=== PATIENT | female | born 1955 | race Caucasian/White ===

== ENCOUNTER 2017-10-18 08:49 | Observation (INO) | payer MEDICARE, MEDICAID ==
[~2017-10-18] VITALS: Ht 172.7 cm; Wt 90.1 kg
[~2017-10-18 08:49] MED LIST: FOLI400T PO; LISI-515 PO
[2017-10-18] MEDS ORDERED: CHLORHEXIDINE GLUCONATE 2 % 1 PACK (2 CLOTHS) TOPICAL PRN (09:45)
[2017-10-18] MEDS ORDERED: INSULIN HUMAN REGULAR 1,000 UNITS/10 ML VIAL SQ PRN (09:45)
[2017-10-18] MEDS ORDERED: LACTATED RINGER'S 1000 ML IV PRN (09:45)
[2017-10-18] MEDS ORDERED: ceFAZolin 2 GM PREMIX 50 ML IV SCH (09:45)
[2017-10-18] MEDS ORDERED: SODIUM CHLORID 0.9% 500 ML IV PRN (09:45)
[2017-10-18] MEDS ORDERED: POVIDONE IODINE 5% (ANTISEPSIS KIT) 4 APPLICATIONS EACH NARE PRN (09:45)
[2017-10-18] MEDS ORDERED: METOPROLOL TARTRATE 25 MG TAB PO PRN (09:45)
[2017-10-18 10:27] LABS: AUTOMATED NEUTROPHIL # 3.4 TH/MM3 (1.8-7.7); BASOPHIL % 0.2 % (0.0-2.0); EOSINOPHIL # 0.1 TH/MM3 (0-0.4); EOSINOPHIL % 1.8 % (0.0-4.0); HEMATOCRIT 39.9 % (35.0-46.0); HEMOGLOBIN 13.8 GM/DL (11.6-15.3); LYMPH % 33.9 % (9.0-44.0); LYMPHOCYTE # 1.9 TH/MM3 (1.0-4.8); MEAN CELL VOLUME 84.5 FL (80.0-100.0); MEAN CORPUSCULAR HEMOGLOBIN 29.2 PG (27.0-34.0); MEAN CORPUSCULAR HGB CONC 34.5 % (32.0-36.0); MEAN PLATELET VOLUME 8.2 FL (7.0-11.0); MONO % 5.5 % (0.0-8.0); MONOCYTE # 0.3 TH/MM3 (0-0.9); NEUT % 58.6 % (16.0-70.0); PLATELET COUNT 152 TH/MM3 (150-450); RED BLOOD COUNT 4.72 MIL/MM3 (4.00-5.30); RED CELL DISTRIBUTION WIDTH 14.5 % (11.6-17.2); WHITE BLOOD COUNT 5.7 TH/MM3 (4.0-11.0)
[2017-10-18] MEDS ORDERED: ROCURONIUM INJ 50 MG/5 ML SYRINGE IV PUSH ONE (12:00)
[2017-10-18] MEDS ORDERED: PROPOFOL 200 MG/20 ML AMP IV ONE (12:00)
[2017-10-18] MEDS ORDERED: NEOSTIGMINE 5 MG/5 ML SYRINGE IV PUSH ONE (12:00)
[2017-10-18] MEDS ORDERED: ONDANSETRON HCL 4 MG/2 ML VIAL IV ONE (12:00)
[2017-10-18] MEDS ORDERED: ePHEDrine/NS 25 MG/5 ML SYRINGE IV ONE (12:00)
[2017-10-18] MEDS ORDERED: DEXAMETHASONE SOD PHOS 4 MG/ML VIAL IV ONE (12:00)
[2017-10-18] MEDS ORDERED: LABETALOL HCL 100 MG/20 ML VIAL IV ONE (12:00)
[2017-10-18] MEDS ORDERED: LIDOCAINE HCL 1% PF 5 ML SYRINGE OTHER ONE (12:00)
[2017-10-18] MEDS ORDERED: LACTATED RINGER'S 1000 ML INJ 1,000 ML IV ONE (12:00)
[2017-10-18] MEDS ORDERED: GLYCOPYRROLATE 1 MG/5 ML SYRINGE IV PUSH ONE (12:00)
[2017-10-18] MEDS ORDERED: ACETAMINOPHEN 1000 MG/100 ML 100 ML IV ONE (13:28)
[2017-10-18] MEDS ORDERED: MIDAZOLAM HCL 2 MG/2 ML VIAL ONE (13:28)
[2017-10-18] MEDS ORDERED: BUPIVACAINE/EPINEPHRINE 0.25% 50 ML VIAL ONE ×2 (13:42→13:43)
[2017-10-18] MEDS ORDERED: LIDOCAINE 1%/EPINEPHrine 1:100,000 SOLN 30 ML VIAL ONE (13:43)
[2017-10-18] MEDS ORDERED: FAMOTIDINE 20 MG/2 ML VIAL ONE (14:00)
[2017-10-18] MEDS ORDERED: HEPARIN SODIUM - SQ 10,000 UNITS/ML VIAL ONE (14:12)
[2017-10-18] MEDS ORDERED: BACITRACIN TOP OINT 15 GM TUBE ONE (15:43)
[2017-10-18] MEDS ORDERED: DO NOT ADM ANY ANTICOAGULANT DRUGS PRN (17:07)
[2017-10-18] MEDS ORDERED: NS + KCL 20 MEQ INJ 1,000 ML ONE (17:25)
[2017-10-18] MEDS ORDERED: *ONDANSETRON 4 MG VIAL PERIprocedural Use ONLY ONE (18:23)
[2017-10-18 18:58] LABS: ALBUMIN 3.2 GM/DL (3.4-5.0); DIRECT BILIRUBIN ADULT 0.2 MG/DL (0.0-0.2)
[2017-10-18 19:01] LABS: INDIRECT BILIRUBIN 0.5 MG/DL (0.0-0.8); TOTAL BILIRUBIN ADULT 0.7 MG/DL (0.2-1.0); TOTAL PROTEIN 6.2 GM/DL (6.4-8.2)
[2017-10-18] MEDS ORDERED: MORPHINE SULFATE 2 MG/ML INJ IV PRN (19:30)
[2017-10-18] MEDS ORDERED: NS + KCL 20 MEQ INJ 1,000 ML IV SCH (19:30)
[2017-10-18 20:35] VITALS: BP 144/71; PULSE 91; RESP 17; TEMP 98.6; O2SAT 100
[2017-10-18] MEDS: oxyCODONE/ACETAMINOPHEN 5 MG/325 MG TAB PO PRN (21:12)
[2017-10-18] MEDS: ONDANSETRON HCL 4 MG/2 ML VIAL IV PUSH PRN (21:12)
[2017-10-18 21:35] VITALS: O2SAT 96
[2017-10-19 00:45] VITALS: BP 124/58; PULSE 69; RESP 18; TEMP 98.4; O2SAT 99
[2017-10-19] MEDS: ceFAZolin 2 GM PREMIX 50 ML IV SCH ×2 (00:48→08:43)
[2017-10-19] MEDS: oxyCODONE/ACETAMINOPHEN 5 MG/325 MG TAB PO PRN ×2 (00:48→09:14)
[2017-10-19 07:20] VITALS: BP 107/58; PULSE 66; RESP 17; TEMP 96.7; O2SAT 99
[2017-10-19 08:00] VITALS: BP 118/58; PULSE 67; RESP 18; TEMP 97.3; O2SAT 99
[2017-10-19] MEDS: ONDANSETRON HCL 4 MG/2 ML VIAL IV PUSH PRN (08:50)
[2017-10-19] MEDS ORDERED: HEPARIN SODIUM - SQ 10,000 UNITS/ML VIAL SQ SCH (09:00)
[2017-10-19 11:47] VITALS: BP 96/50; PULSE 60; RESP 18; TEMP 97.6; O2SAT 99
--- NOTE | 2017-10-19 12:41 | HHI.PR ---
Subjective Remarks Pt doing very well. Minimal pain. No SOB/other complaints. Tolerating po. Ambulating on her own without difficulty. Pt expresses comfort with drain care. Getting HSQ. Objective Vital Signs Date Time Temp Pulse Resp B/P (MAP) Pulse Ox O2 Delivery O2 Flow Rate FiO2 10/19/17 11:47 97.6 60 18 96/50 (65) 99 10/19/17 08:00 97.3 67 18 118/58 (78) 99 10/19/17 07:20 96.7 66 17 107/58 (74) 99 10/19/17 01:42 17 10/19/17 00:45 98.4 69 18 124/58 (80) 99 10/18/17 23:43 Room Air 10/18/17 21:35 96 Room Air 10/18/17 20:35 98.6 91 17 144/71 (95) 100 10/18/17 18:20 98.3 49 20 155/62 (93) 92 Nasal Cannula 2 10/18/17 18:00 49 20 169/74 (105) 92 Nasal Cannula 2 10/18/17 17:45 45 20 158/73 (101) 92 Nasal Cannula 2 10/18/17 17:30 50 20 156/72 (100) 91 Nasal Cannula 2 10/18/17 17:15 52 20 159/76 (103) 94 Nasal Cannula 2 10/18/17 17:08 97.3 56 20 149/70 (96) 97 Nasal Cannula 2 I/O 10/18/17 10/18/17 10/18/17 10/19/17 10/19/17 10/19/17 07:00 15:00 23:00 07:00 15:00 23:00 Intake Total 1500 ml 530 ml Output Total 100 ml 40 ml Balance 1400 ml 490 ml Intake Oral 480 ml IV Total 1500 ml 50 ml Output Drainage Total 50 ml 40 ml Estimated Blood Loss 50 ml # Voids 2 # Bowel Movements 0 Result Diagram: 10/18/17 0935 Objective Remarks NAD comfortable pleasant SCDs on BLE abd soft, minimally ttp JPs thin SSF totalling under 150mls Assessment and Plan Problem List: (1) Panniculitis ICD Codes: M79.3 - Panniculitis, unspecified Status: Acute Assessment and Plan POD1 s/p panniculectomy Doing very well DC to home RTC next Verena Calles,Slava Parisi MD Oct 19, 2017 12:41
[2017-10-19] MEDS ORDERED: PERC5TAB12 PO (13:56)
[2017-10-19] MEDS ORDERED: CEPH-460 PO (14:03)
--- NOTE | 2017-10-19 18:14 | PD.OP ---
Operative Report Date of Surgery: Oct 18, 2017 Preoperative Diagnosis: (1) Panniculitis Postoperative Diagnosis: (1) Panniculitis Procedure: Panniculectomy Anesthesia: General Surgeon: Slava Munoz Cement Breaker(s): . Operation and Findings: A 61-year-old female who presented to clinic having lost weight from a high of roughly 400 pounds down to her current weight of roughly 185. Patient was complaining of significant intertrigo. Risks benefits and alternative treatments were discussed for her panniculitis. All questions were answered. Patient expressed understanding. Specifically patient understood that this is not a cosmetic procedure, and as such she would have lateral contour irregularities. She understood that the only way to address these would be with a circumferential belt lipectomy which was not covered by insurance. The patient was accepting of these risks, as well as with having a very low umbilicus as this would also not be addressed with the panniculectomy. Informed consent was obtained. The patient was marked in the preoperative holding bay. Antibiotics were given on-call to the operating room. The patient was taken to the operating room. All pressure points were padded. A surgical timeout was performed. After the smooth induction of general anesthesia, roughly 50 mL of quarter percent Marcaine with epinephrine was instilled along the planned incision sites. Surgical site was prepped and draped in the usual sterile fashion. The inferior incision was made first. Bovie cautery was used to dissected down to abdominal fascia. Following this dissection was carried laterally in both directions. Following this the pannus was undermined superiorly until the level of the superior incision marking was reached. Towel clamps were then placed inferiorly. With minimal traction, the towel clamps were able to be appreciated at the level of the planned superior incision through the skin flap. The superior incision markings were deemed to be without undue tension. A 10 blade was then used to incise the pannus in the midline until the superior incision marking was reached. Following this the right and then left pannus flaps were incised superiorly and then dissected free using the Bovie cautery. Both pannus flaps together weighed roughly 3.75 kg. Hemostasis was ensured. 2 19 [place] Reuben drains were brought out laterally to the incision, one on each side. Leatha's fascia was reapproximated using interrupted 3-0 Vicryls. Deep dermis was reapproximated with a running 3- 0 Vicryl. Lastly the skin was closed with a running 4-0 Monocryl in a subcuticular fashion. The drains were secured in place with 2-0 silk's. Both drains held excellent suction. The effluent was thin serosanguineous fluid. The surgical site was cleaned. The incision was dressed with bacitracin Xeroform gauze dry gauze and Tegaderms. The patient was awoken from anesthesia and arrived stable and doing well to the PACU. All needle sponge and instrument counts were correct 2. Slava Munoz MD Oct 19, 2017 18:14
[2017-10-20] MEDS ORDERED: INFLUENZA VIRUS VACCINE (QUADRIVALENT) 0.5 ML SYR IM ONE (10:00)
[2017-10-20] MEDS ORDERED: PNEUMOCOCCAL POLYVALENT INJ 25 MCG/0.5 ML SYR IM ONE (10:00)
--- NOTE | 2017-10-21 13:20 | EKG ---
Date Performed: 10/18/2017 Time Performed: 09:26:46 PTAGE: 61 years EKG: SINUS BRADYCARDIA MARKED LEFT AXIS DEVIATION INTRAVENTRICULAR CONDUCTION DELAY MINIMAL VOLT AGE CRITERIA FOR LVH, CONSIDER NORMAL VARIANT ABNORMAL ECG PREVIOUS TRACING : 11/27/2009 11.17 Since the prior tracing, there has been no significant newman DOCTOR: Caesar Lassiter Interpretating Date/Time 10/21/2017 13:18:41
== END 2017-10-19 14:39 | disposition home or self-care (01) ==
LOC: HSDC 08:49 → HSDI 17:30 → N06A 18:44
PROVIDERS: ADMIT Student in an Organized Health Care Education/Training Program; ATTEND Student in an Organized Health Care Education/Training Program
DX: M79.3 Panniculitis, unspecified (principal); L30.4 Erythema intertrigo; R94.31 Abnormal electrocardiogram [ECG] [EKG]; I10 Essential (primary) hypertension
CPT/HCPCS: 00802; 15830; 80076; 84134; 85025; 88305; 93005; 96365; 96372; 96375; 96376; G0378; J0131; J0690; J1100; J1644; J2250; J2405; J2710; J3010; J3480; J7120; 88307

== ENCOUNTER 2018-02-12 14:36 | Observation (INO) ==
[2018-02-13] MEDS ORDERED: Acetaminophen 325 MG Tablet PO PRN (03:02)
[2018-02-13] MEDS ORDERED: Bisacodyl 10 MG Supp RECTAL PRN (03:03)
[2018-02-13] MEDS ORDERED: Naloxone Inj 0.4 MG/ML Vial IV.PUSH PRN (03:07)
[2018-02-13] MEDS ORDERED: Senna/Docusate Sodium 8.6/50 MG Tablet PO SCH (09:00)
[2018-02-13] MEDS ORDERED: Famotidine 20 MG Tablet PO SCH (09:00)
[2018-02-13] MEDS ORDERED: Pneumococcal-23 Polyvalent Vaccine Inj 25 MCG/0.5 ML Syringe IM ONE (10:00)
--- NOTE | 2018-02-13 11:25 | P.PNFP ---
Results - Labs Result diagrams: 02/12/18 09:50 02/12/18 09:50 Abnormal lab results 02/12/18 02/12/18 02/13/18 Range/Units 09:50 16:00 07:37 BUN 24 H (7-18) MG/DL Estimated GFR 61 L (>89) ML/MIN Random Glucose 165 H (74-106) MG/DL Fasting Glucose 117 H (74-99) mg/dL CK-MB (CK-2) 5.6 H (0.5-3.6) NG/ML Troponin I LESS THAN 0.02 L LESS THAN 0.02 L (0.02-0.05) NG/ML Short CBC 02/12/18 Range/Units 09:50 WBC 5.0 (4.0-11.0) TH/MM3 Hgb 13.4 (11.6-15.3) GM/DL Hct 40.4 (35.0-46.0) % Plt Count 158 (150-450) TH/MM3 BMP 02/12/18 09:50 Sodium 142 Potassium 4.7 Chloride 106 Carbon Dioxide 30.8 BUN 24 H Creatinine 0.92 Calcium 8.9 Cardiac Enzymes 02/12/18 02/12/18 Range/Units 09:50 16:00 Total Creatine Kinase 192 (26-192) U/L CK-MB (CK-2) 5.6 H (0.5-3.6) NG/ML Troponin I LESS THAN 0.02 L LESS THAN 0.02 L (0.02-0.05) NG/ML Liver Function 02/12/18 Range/Units 09:50 Total Bilirubin 0.5 (0.2-1.0) MG/DL AST 36 (15-37) U/L ALT 23 (10-53) U/L Alkaline Phosphatase 60 (45-117) U/L Albumin 3.5 (3.4-5.0) GM/DL Physical Exam Vital signs: Vital Signs 02/12/18 20:00 02/12/18 22:57 02/13/18 04:00 Temperature 97.3 F L Pulse Rate 51 L 45 L 49 L Respiratory Rate 15 Blood Pressure 134/68 Pulse Oximetry 99 02/13/18 08:00 Temperature 97.6 F Pulse Rate 47 L Respiratory Rate 18 Blood Pressure 143/75 H Pulse Oximetry 99 Intake & Output 02/12/18 02/13/18 02/13/18 18:59 06:59 18:59 Weight 85 kg
--- NOTE | 2018-02-13 12:22 | P.PNFP ---
Subjective Interval history: No significant chest pain since admission. Notes that she recently had a full ambulatory cardiac evaluation; appears to have included nuclear stress test; all reported as negative. Results - Labs Result diagrams: 02/12/18 09:50 02/12/18 09:50 Abnormal lab results 02/12/18 02/12/18 02/13/18 Range/Units 09:50 16:00 07:37 BUN 24 H (7-18) MG/DL Estimated GFR 61 L (>89) ML/MIN Random Glucose 165 H (74-106) MG/DL Fasting Glucose 117 H (74-99) mg/dL CK-MB (CK-2) 5.6 H (0.5-3.6) NG/ML Troponin I LESS THAN 0.02 L LESS THAN 0.02 L (0.02-0.05) NG/ML Short CBC 02/12/18 Range/Units 09:50 WBC 5.0 (4.0-11.0) TH/MM3 Hgb 13.4 (11.6-15.3) GM/DL Hct 40.4 (35.0-46.0) % Plt Count 158 (150-450) TH/MM3 BMP 02/12/18 09:50 Sodium 142 Potassium 4.7 Chloride 106 Carbon Dioxide 30.8 BUN 24 H Creatinine 0.92 Calcium 8.9 Cardiac Enzymes 02/12/18 02/12/18 Range/Units 09:50 16:00 Total Creatine Kinase 192 (26-192) U/L CK-MB (CK-2) 5.6 H (0.5-3.6) NG/ML Troponin I LESS THAN 0.02 L LESS THAN 0.02 L (0.02-0.05) NG/ML Liver Function 02/12/18 Range/Units 09:50 Total Bilirubin 0.5 (0.2-1.0) MG/DL AST 36 (15-37) U/L ALT 23 (10-53) U/L Alkaline Phosphatase 60 (45-117) U/L Albumin 3.5 (3.4-5.0) GM/DL Physical Exam Vital signs: Vital Signs 02/12/18 20:00 02/12/18 22:57 02/13/18 04:00 Temperature 97.3 F L Pulse Rate 51 L 45 L 49 L Respiratory Rate 15 Blood Pressure 134/68 Pulse Oximetry 99 02/13/18 08:00 Temperature 97.6 F Pulse Rate 47 L Respiratory Rate 18 Blood Pressure 143/75 H Pulse Oximetry 99 Intake & Output 02/12/18 02/13/18 02/13/18 18:59 06:59 18:59 Weight 85 kg - Constitutional no acute distress - Routine Respiratory Exam Present: CTA bilaterally - Routine Cardiovascular Exam Present: RRR, bradycardia - Routine Abdominal Exam Present: soft. Absent: tenderness - Routine Extremities Exam Absent: edema Assessment and Plan - Assessment (1) Pre-syncope Code(s): R55 - Syncope and collapse Status: Acute Plan: EKGs showing sinus bradycardia, no ST-T wave segment changes Troponin negative -Check ultrasound carotids - Result shows no hemodynamically significant stenoses. -Telemetry - stable other then sinus bradycardia. -Chest pain workup - negative for cardiac change. (2) Chest pain Code(s): R07.9 - Chest pain, unspecified Status: Acute Plan: Mild chest pain patient states feels similar to when she had her hiatal hernia in the past EKG and troponin negative as noted above -Famotidine BID for possible GERD component - patient notes improvement in symptoms. (2) Chest pain Qualifiers: Chest pain type: other chest pain Qualified Code(s): R07.89 - Other chest pain; R07.8 - Other chest pain
[2018-02-13] MEDS ORDERED: Enoxaparin Inj 40 MG/0.4 ML Syringe SQ SCH (16:00)
--- NOTE | 2018-02-13 16:22 | P.PNADD ---
Addendum to Inpatient Note Reason for Addendum: Additional Documentation Additional information: Spoke w/Cardiology Dr. Ellsworth on the phone. Cardiology was not able to see patient today but case was relayed. Advised that patient be careful w/sodium and fluid intake, avoid vagal stress activity, and recommend follow up in the office - plan to set up patient with Holter monitor outpatient as well. Will relay this information to patient through discharge and refer for follow-up.
== END 2018-02-13 18:23 | disposition home or self-care (01) ==
LOC: UNDODISOB → NEPHCDU 14:36
PROVIDERS: ADMIT Family Medicine; ATTEND Family Medicine